=== PATIENT | female | born 1975 | race Caucasian/White ===

== ENCOUNTER 2021-03-06 08:59 | Emergency (ER) | payer OTHER ==
--- NOTE | 2021-03-06 09:02 | ED Physician Documentation ---
PD HPI URI - Stated complaint Stated Complaint: COUGHING/VOMITING - History obtained from History obtained from: Patient - History of Present Illness Timing - onset: How many weeks ago (3) Timing duration: Weeks (3) Timing details: Gradual onset, Still present Associated symptoms: Dry cough (initially with feeling of tightness. Tried OTC meds without improvment. Has had consistent worsening of cough and now for few days is having cough enough to point of gagging and has some clear sputum too. Had wisps of red with sputum couple times in last couple days. Unable to sleep due to cough now), Dyspnea. No: Fever, Chills, Chest pain, Bilateral edema Contributing factors: Other (had her COVID vaccine 3 weeks ago with 2nd dose couple days ago. Had already had some cough prior to then and worsening did not seem to correlate per se with the dosings.). No: Sick contact (other family members without illness and no noted exposure to COVID. Her 2 children have mild congestion the past day or two.), Travel, Immunocompromised Worsened by: Activity, Position (worse cough with lying at ngiht.) Similar symptoms before: Diagnosis (has some environmental allergies/asthma in the past. episodic bronchitis. No history of pneumonia.) Recently seen: Not recently seen Review of Systems Constitutional: reports: Myalgias. denies: Fever, Chills Nose: reports: Congestion, Sinus pressure / pain. denies: Rhinorrhea / runny nose Throat: denies: Sore throat Cardiac: denies: Chest pain / pressure, Palpitations Respiratory: reports: Dyspnea, Cough, Wheezing GI: reports: Nausea, Vomiting (with coughing hard.). 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: section, Tubal ligation, LEEP (Cervical surgery), Other - Present Medications Home Medications: Ambulatory Orders Medication Instructions Recorded Confirmed Albuterol Sulf [Ventolin Hfa 2 - 3 puffs INH QID 7 Days #1 03/06/21 Inhaler] inhaler Amoxicillin 500 mg PO TID #20 cap 03/06/21 Benzonatate [Tessalon] 100 mg PO TID PRN #20 cap 03/06/21 Citalopram Hydrobromide [Celexa] 40 mg PO DAILY 03/06/21 03/06/21 Lidocaine Viscous 2% [Xylocaine 5 ml PO Q4H PRN #100 ml 03/06/21 Viscous 2%] dexAMETHasone [Decadron] 4 mg PO DAILY #7 tablet 03/06/21 - Allergies Allergies/Adverse Reactions: Allergies Allergy/AdvReac Type Severity Reaction Status Date / Time No Known Drug Allergies Allergy Verified 03/06/21 09:06 - Social History Smoking Status: Former smoker PD ED PE NORMAL - Vitals Vital signs reviewed: Yes - General General: Alert and oriented X 3, No acute distress (repetitive cough with face turning red at times. No whooping sounds. Mild wheezing noted. ), Well developed/nourished - HEENT HEENT: Ears normal, Pharynx benign - Neck Neck: Supple, no meningeal sign, No adenopathy - Cardiac Cardiac: RRR, No murmur - Respiratory Respiratory: Clear bilaterally (minimal scattered wheezes. No prolonged expiratory phase. ) - Abdomen Abdomen: Soft, Non tender Results - Vitals Vitals: Vital Signs - 24 hr 03/06/21 03/06/21 03/06/21 09:06 09:46 10:50 Temperature 36.7 C 37.2 C Heart Rate 86 80 86 Respiratory 18 18 22 Rate Blood Pressure 119/76 110/78 O2 Saturation 100 98 Oxygen O2 Source Room air - Rads (name of study) chest xray Radiology: Prelim report reviewed (no infiltrates nor acute process.), See rad report PD MEDICAL DECISION MAKING - ED course Complexity details: reviewed results (chest xray okay), re-evaluated patient, considered differential (sounds likely environmental/allergies/asthma-yamilet but worse now with some sputum production. ), d/w patient Departure - Departure Disposition: 01 Home, Self Care Clinical Impression: Persistent cough for 3 weeks or longer Acute bronchitis Qualifiers: Bronchitis organism: unspecified organism Qualified Code(s): J20.9 - Acute bronchitis, unspecified Condition: Stable Record reviewed to determine appropriate education?: Yes Instructions: ED Bronchitis Asthmatic Follow-Up: [facility] Delacruz [Provider Group] Prescriptions: Amoxicillin 500 mg PO TID #20 cap dexAMETHasone [Decadron] 4 mg PO DAILY #7 tablet Benzonatate [Tessalon] 100 mg PO TID PRN #20 cap PRN Reason: Cough Albuterol Sulf [Ventolin Hfa Inhaler] 2 - 3 puffs INH QID 7 Days #1 inhaler Lidocaine Viscous 2% [Xylocaine Viscous 2%] 5 ml PO Q4H PRN #100 ml PRN Reason: Pain Comments: For the bronchial irritation, I would have you try the albuterol inhaler 2 to 3 puffs 4 times a day for the next week or so. Also Decadron steroid for inflammation of the airways and bronchials. This usually helps quite a bit and should start improving things later today into tomorrow. Tessalon as needed for cough suppression. For just throat irritation as well, you can use the lidocaine mixed with some liquid Benadryl and see if that helps as well. It is hard to tell if there may be some infectious component at this time so amoxicillin as directed for a week. Recheck if not improving well over the next couple of days and return if worsening. Discharge Date/Time: 03/06/21 10:50
[2021-03-06] MEDS ORDERED: ALBUTEROL 1 PUFF INH STA (09:25)
[2021-03-06] MEDS ORDERED: CETIRIZINE 10 MG TABLET PO STA (09:25)
[2021-03-06] MEDS ORDERED: DEXAMETHASONE 10 MG/ML VIAL PO STA (09:25)
[2021-03-06] MEDS ORDERED: CHERRY SYRUP 10 ML UDC PO ONE (09:25)
[2021-03-06] MEDS ORDERED: BENZONATATE 100 MG CAPSULE PO STA (09:25)
--- OUTSIDE RECORDS SUMMARY | 2021-03-06 09:31 | EXTERNAL MEDICAL SUMMARY RPT | Continuity of Care Document ---
:1975 Demographics Phone Unavailable Preferred Language Unknown Marital Status Unknown Holiness Affiliation Unknown Race Unknown Ethnic Group Unknown Author Organization [facility] Address [address] [place] [address] Phone Social History date description facility [phone]
--- NOTE | 2021-03-06 09:45 | XRAY Report ---
PROCEDURE: Chest 2 View X-Ray INDICATIONS: Dyspnea and cough for 4 weeks TECHNIQUE: 2 view(s) of the chest. COMPARISON: None. FINDINGS: Surgical changes and devices: None. Lungs and pleura: No pleural effusions or pneumothorax. Lungs are clear. Mediastinum: Mediastinal contours are normal. Heart size is normal. Bones and chest wall: No suspicious bony abnormalities. Soft tissues appear unremarkable. IMPRESSION: No acute cardiopulmonary process demonstrated radiographically. Reviewed by: Christopher Bowen MD on 03/06/2021 9:44 AM PDT Approved by: Christopher Bowen MD on 03/06/2021 9:44 AM PDT Station ID: [id number]
[2021-03-06] MEDS ORDERED: diphenhydrAMINE ELIXIR 25 MG/10 ML UDC PO STA (09:53)
[2021-03-06] MEDS ORDERED: LIDOCAINE VISCOUS 2% 15 ML UDC MM STA (09:53)
[2021-03-06 10:50] VITALS: BP 110/78
== END 2021-03-06 10:50 | disposition home or self-care (01) ==
LOC: ED 08:59
DX: J20.9 Acute bronchitis, unspecified (principal); J45.909 Unspecified asthma, uncomplicated; Z87.891 Personal history of nicotine dependence
CPT/HCPCS: 71046; 94640; 99284; A9270

== ENCOUNTER 2021-07-24 14:51 | Outpatient (CLI) | payer OTHER ==
--- NOTE | 2021-07-31 21:42 | SLEEP CARE CONSULTATION ---
Information from patient questionnaire entered by Edna Sellers. I have reviewed and concur with the information entered by Edna Sellers. This document represents the service I personally performed and the decisions made by me, Ale Dubose MD, [facility]. History of Present Illness Service Date and Time: 07/24/2021 1451 Reason for Visit: New patient Chief Complaint: reports: Unrefreshed sleep, Fatigue, Frequent awakenings at night Date of Onset: 11 years Usual bedtime: 9-10 PM Time it takes to fall asleep: 1-2 hours Snores at night: Yes Observed to quit breathing while asleep: No Sleeps alone due to snoring: No Number of times waking at night: 3-4 Reasons for waking at night: reports: Other (Unknown reason) Toss, Turn, or Twitch while sleeping: Yes Recalls having dreams: No Usually gets out of bed at: 4:30 AM Feels refreshed in the morning: No Morning headache: No Sleepy or fatigued during the day: Yes Ever fallen asleep while driving: No Takes day naps: No Dreams during day naps: Yes Prior sleep studies: No Additional HPI information: I have the pleasure of seeing Ms. Celis today regarding the possibility of her having a sleep disorder. As you know, she is a 45 year old lady who complains of insomnia for 11 years. She reports a personal trauma at the onset of her insomnia. She has been treated with Citalopram since. The patient tells me that she normally goes to bed around 9 - 10 pm, and it takes her approximately 1 2 hours to fall asleep. Presently, she is not taking any sleep aid. She has been told that she snores loudly and irregularly at night. She has never been observed to stop breathing in her sleep. Her sleeps in the same bed. He uses a CPAP. She can recall waking up on the average of 3 - 4 times during the night. Most of the time she wakes up because of unknown reason. She has never awakened because of her own snoring, choking, or having to gasp for air. There is a lot of tossing and turning in her sleep. She has somniloquy (sleep talking) but not somnambulism (sleep walking). Generally there is no recollection of dreams. In the morning she usually gets up out of the bed around 4:30 a.m. to commute to work in [employer]. She does not feeling refreshed or rested. On weekends, she wakes up at 7 a.m. She occasional has a morning headache. During the day she complains of feeling sleepy and fatigued. Her score on [place] Sleepiness Scale is 10 out of 24. She never has fallen asleep while driving nor has had any accident due to sleepiness. She usually does not take naps during the day. She reports having impaired concentration during the day. 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 Patient is and lives in [place]. Family History Family history of sleep disordered breathing: Yes Family Hx Sleep Apnea: Mother: Sleep apnea - Treated Allergies and Home Medications Drug allergies reviewed: Yes Home medication list reviewed: Yes Review of Systems Cardiovascular: denies: high blood pressure, palpitations, chest pain, irregular heart rate or pulse, leg or foot swelling, have to sleep sitting up, other Respiratory: denies: shortness of breath, wheeze, sputum production, chronic cough, other Gastrointestinal: denies: heartburn, difficulty swallowing, nausea, vomitting, diarrhea, abdominal pain, other Urinary: denies: incontinence, frequency, urgency, impotence, other Neurological: reports: headaches, other (pain) Psychiatric: reports: anxiety, depression Ear/Nose/Throat: reports: other (polyps) Musculoskeletal: reports: joint pain (stiffness), neck pain, back pain, joint swelling Immunologic: denies: sneezing, rash, itching, allergies to food or environment, other Physical Exam Vital signs obtained and entered by: To minimize the risk of COVID-19 exposure, detailed exam was not performed. Height: 5 ft 5 in Weight: 200 lb Body Mass Index: 33.3 BMI Classification: Obese Impression and Plan IMPRESSION: 1. Obstructive Sleep Apnea-Hypopnea Syndrome, as evident by history of loud and irregular snoring, frequent awakenings during the night, unrefreshed sleep, cognitive impairment, and daytime hypersomnolence. Narrow oropharynx and obesity are common predisposing factors for obstructive sleep apnea-hypopnea syndrome. I recommend proceeding to polysomnography to confirm the diagnosis and to assess severity. If she has significant sleep disordered breathing, a manual CPAP titration study will also be performed to find the optimal treatment pressure. I informed the patient of what the sleep studies involve and after some discussion, she would like to have a home sleep apnea test (HSAT). 2. Insomnia, due to have two different sleep-wake schedulesweek and weekends. The solution is to keep only one schedule. This means she has to wake up at 4:30 am every day, including on weekends. However, because she is leaving her job in just 3 months, I do not see a real need to correct the problem at this time. Plan: 1. Schedule a home sleep apnea test (HSAT). 2. Avoid long distance driving or when feeling sleepy. 3. Avoid alcohol, sedative and muscle relaxant around bedtime. 4. Attempt to lose weight. 5. Return for follow up after the test. Follow up with Sleep Care in: 1-2 months Visit Type: In Office Time Spent with Patient (minutes): 15 Provider Statement: I spent 100% of the Face to Face Visit with the patient with greater than 50% spent counseling the patient and coordination of care.
== END 2021-07-24 14:52 | disposition home or self-care (01) ==
LOC: SC 14:51
PROVIDERS: ATTEND Internal Medicine Pulmonary Disease
DX: R06.83 Snoring (principal); G47.33 Obstructive sleep apnea (adult) (pediatric); G47.8 Other sleep disorders; R41.89 Other symptoms and signs involving cognitive functions and awareness; R06.81 Apnea, not elsewhere classified; E66.9 Obesity, unspecified; Z68.33 Body mass index [BMI] 33.0-33.9, adult
CPT/HCPCS: 99202; 99212

== ENCOUNTER 2021-08-01 14:59 | Outpatient (CLI) | payer OTHER | END 2021-08-01 15:00 | disposition home or self-care (01) | LOC: SC 14:59 | PROVIDERS: ATTEND Nurse Practitioner Family | DX: R06.83 Snoring (principal); G47.00 Insomnia, unspecified; G47.10 Hypersomnia, unspecified; G47.8 Other sleep disorders; R41.89 Other symptoms and signs involving cognitive functions and awareness | CPT/HCPCS: 95806 ==

== ENCOUNTER 2021-08-08 09:02 | Outpatient (CLI) | payer OTHER ==
--- NOTE | 2021-08-21 10:37 | Mammography Report ---
BILATERAL DIGITAL SCREENING MAMMOGRAM 3D/2D: 08/08/2021 CLINICAL: Routine screening. Comparison is made to exam dated: 11/20/2017 mammogram - [facility]. The tissue of both aldair asts is heterogeneously dense. This may lower the sensitivity of mammography. There are biopsy clips in the right breast. No significant masses, calcifications, or other findings are seen in either breast. There has been no significant interval change. IMPRESSION: NEGATIVE There is no mammographic evidence of malignancy. A 1 year screening mammogram is recommended. This exam was interpreted at Station ID: [id number]. NOTE: For mammograms, a report in lay terms will be sent to the patient. Approximately 15% of breast malignancies will not be visualized mammographically. In the management of a palpable breast mass, a negative mammogram must not discourage biopsy of a clinically suspicious lesion. Electronically Signed By: Ricky Simpson M.D. ar/[email or web address]:08/18/2021 16:25:06 ACR BI-RADS Category 1: Negative 3341F PARENCHYMAL PATTERN: (D) - The breast(s) demonstrate(s) heterogeneously dense fibroglandular patricia chapman. BI-RADS CATEGORY: (1) - 1 RECOMMENDATION: (ANNUAL) - Recommend routine annual screening mammography. [id number] 1 year screening LATERALITY: (B)
== END 2021-08-08 09:03 | disposition home or self-care (01) ==
LOC: DI.N 09:02
PROVIDERS: ATTEND Family Medicine
DX: Z76.89 Persons encountering health services in other specified circumstances (principal); Z12.31 Encounter for screening mammogram for malignant neoplasm of breast

== ENCOUNTER 2021-08-21 14:22 | Outpatient (CLI) | payer OTHER ==
[2021-08-22 08:32] VITALS: BP 112/62
--- NOTE | 2021-08-22 08:32 | SLEEP CARE CONSULTATION ---
Information from patient questionnaire entered by Roxana Martines. I have reviewed and concur with the information entered by Roxana Martines. This document represents the service I personally performed and the decisions made by me, Ale Dubose MD, [facility]. History of Present Illness Service Date and Time: 08/21/2021 1422 Initial [place] Sleepiness Scale score: 10 (in 2020) Current [place] Sleepiness Scale score: 16 Additional HPI information: Ms. Celis returned for follow up of the home sleep apnea test (HSAT) she had on 08/01/2021. The test showed no significant sleep disordered breathing. The AHI was 1.8 and asad oxygen saturation of 89%. The test was of good quality and lasted 7 hours. The patient said she slept most of the time that night. The patient was informed of these findings. I explained to her that the test w as normal. Sleep Study - Results Type of Sleep Study: Home sleep study Prior sleep studies: Yes Year and Where: 07/2021 [facility] Allergies and Home Medications Drug allergies reviewed: Yes Home medication list reviewed: Yes Review of Systems Review of systems same as previous: Yes Physical Exam Blood Pressure: 112/62 Heart Rate: 98 O2 Saturation: 98 Height: 5 ft 5 in Weight: 214 lb Body Mass Index: 35.6 BMI Classification: Obese Impression and Plan IMPRESSION: 1. Insomnia, due to circadian rhythm disordershe had to wake up very early on certain days of the week. The patient has since quit the job and her insomnia resolved. 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 PLAN: 1. Return for a follow up on as needed basis. Follow up with Sleep Care in: as needed Visit Type: In Office Time Spent with Patient (minutes): 15 Provider Statement: I spent 100% of the Face to Face Visit with the patient with greater than 50% spent counseling the patient and coordination of care.
== END 2021-08-21 14:23 | disposition home or self-care (01) ==
LOC: SC 14:22
PROVIDERS: ATTEND Internal Medicine Pulmonary Disease
DX: G47.00 Insomnia, unspecified (principal)
CPT/HCPCS: 99212

== ENCOUNTER 2021-11-03 10:42 | Emergency (ER) | payer OTHER ==
[2021-11-03 11:39] VITALS: BP 121/78
[2021-11-03] MEDS ORDERED: guaiFENesin 600 MG TABLET PO STA (12:28)
[2021-11-03] MEDS ORDERED: PSEUDOEPHEDRINE 30 MG TABLET PO STA (12:28)
[2021-11-03] MEDS ORDERED: IBUPROFEN 800 MG TABLET PO STA (12:28)
--- NOTE | 2021-11-03 12:31 | ED Physician Documentation ---
PD HPI DYSPNEA - Stated complaint Stated Complaint: C+, HEADACHES, COUGH - Chief complaint Chief Complaint: Resp - History obtained from History obtained from: Patient - Additional information Additional information: 45-year-old woman who has been immunized Covid with moderna vaccine, no booster. She became sick yesterday with cough, runny nose, sinus pressure, sore throat. No shortness of breath. She does have joint aches. She tested positive with a home test for Covid. Review of Systems Constitutional: reports: Chills, Myalgias, Fatigue. denies: Fever Nose: reports: Rhinorrhea / runny nose Throat: reports: Sore throat Respiratory: reports: Cough. 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, Tubal ligation, LEEP (Cervical surgery), Other - Present Medications Home Medications: Ambulatory Orders Medication Instructions Recorded Confirmed Citalopram Hydrobromide 40 mg PO DAILY 11/03/21 11/03/21 [Citalopram HBr] Guaifenesin/Pseudoephedrne HCl 1 each PO BID PRN #20 ea 11/03/21 [Mucinex D ER 600-60 mg Tablet] Ibuprofen [Motrin] 800 mg PO Q8H PRN #30 tablet 11/03/21 - Allergies Allergies/Adverse Reactions: Allergies Allergy/AdvReac Type Severity Reaction Status Date / Time No Known Drug Allergies Allergy Verified 11/03/21 11:02 - Social History Does the pt smoke?: No Smoking Status: Never smoker PD ED PE NORMAL - Vitals Vital signs reviewed: Yes - General General: Alert and oriented X 3, No acute distress - HEENT HEENT: Ears normal, Pharynx benign - Neck Neck: Supple, no meningeal sign, No bony TTP - Cardiac Cardiac: RRR, No murmur - Respiratory Respiratory: No respiratory distress, Clear bilaterally - Derm Derm: No rash - Neuro Neuro: Alert and oriented X 3, Normal speech Results - Vitals Vitals: Vital Signs - 24 hr 11/03/21 11/03/21 11:03 11:38 Temperature 36.6 C Heart Rate 81 82 Respiratory 19 16 Rate Blood Pressure 126/84 H 121/78 O2 Saturation 99 100 Oxygen O2 Source Room air PD MEDICAL DECISION MAKING - ED course ED course: 45-year-old woman with Covid in typical symptoms of a days duration. We discussed Mab therapy but its questionable limitations in the setting of omicron since we don't have one now that is effective against omicron yet. Discussed that we have no way of identifying which variant she has at this point but Mab was still offered and she declined. Departure - Departure Disposition: 01 Home, Self Care Clinical Impression: COVID-19 Condition: Good Record reviewed to determine appropriate education?: Yes Instructions: ED Viral Syndrome Prescriptions: Ibuprofen [Motrin] 800 mg PO Q8H PRN #30 tablet PRN Reason: PAIN &/OR FEVER Guaifenesin/Pseudoephedrne HCl [Mucinex D ER 600-60 mg Tablet] 1 each PO BID PRN #20 ea PRN Reason: congestion Comments: Prescriptions sent electronically to [facility] in [place]. You do need to strictly quarantine for the next 13 days. Return for new or worsening symptoms or if you change your mind about antibody therapy. Discharge Date/Time: 11/03/21 13:16
== END 2021-11-03 13:16 | disposition home or self-care (01) ==
LOC: ED 10:42
DX: U07.1 COVID-19 (principal)
CPT/HCPCS: 87635; 99282; 99283; A9270

== ENCOUNTER 2022-08-29 09:05 | Outpatient (CLI) | payer OTHER ==
--- NOTE | 2022-08-30 10:37 | Mammography Report ---
BILATERAL DIGITAL SCREENING MAMMOGRAM 3D/2D: 08/29/2022 CLINICAL: Routine screening. Comparison is made to exams dated: 08/08/2021 mammogram - [facility] and 11/20/2017 mammogram - [facility]. Both breasts are heterogeneously dense, which may obscure small masses (category c / 51-75% glandular tissue). There are biopsy clips in the right breast. No significant masses, calcifications, or other findings are seen in either breast. There has been no significant interval change. IMPRESSION: NEGATIVE There is no mammographic evidence of malignancy. A 1 year screening mammogram is recommended. Based on the Tyrer Cuzick model (a risk assessment model) the patients lifetime risk is 13.3% and he r 10 year risk is 2.4%. According to the ACR, ACS, and NCCN guidelines, an annual breast MRI exam milla ng with mammogram is recommended if the patients lifetime risk is 20% or greater. This exam was interpreted at Station ID: [id number]. NOTE: For mammograms, a report in lay terms will be sent to the patient. Approximately 15% of breast malignancies will not be visualized mammographically. In the management of a palpable breast mass, a negative mammogram must not discourage biopsy of a clinically suspicious lesion. Electronically Signed By: Vladimir gann/[email or web address]:08/29/2022 10:40:16 ACR BI-RADS Category 1: Negative 3341F PARENCHYMAL PATTERN: (D) - The breast(s) demonstrate(s) heterogeneously dense fibroglandular parcinthiay ma. BI-RADS CATEGORY: (1) - 1 RECOMMENDATION: (ANNUAL) - Recommend routine annual screening mammography. [id number] 1 year screening LATERALITY: (B)
== END 2022-08-29 09:06 | disposition home or self-care (01) ==
LOC: DI.N 09:05
PROVIDERS: ATTEND Physician Assistant
DX: Z12.31 Encounter for screening mammogram for malignant neoplasm of breast (principal)

== ENCOUNTER 2022-09-11 08:00 | Outpatient (CLI) | payer OTHER ==
--- NOTE | 2022-09-11 16:40 | XRAY Report ---
PROCEDURE: Knee 4 View RT INDICATIONS: RIGHT KNEE PAIN TECHNIQUE: 4 views of the right knee(s) were acquired. COMPARISON: 05/30/2016 and 02/09/2016 FINDINGS: Bones: No fractures or dislocations. Mild to moderate tricompartmental osteoarthritis is seen most notably in medial femoral tibial compartment with joint space narrowing, subchondral sclerosis and sm all marginal osteophyte formations. No suspicious bony lesions. Soft tissues: No joint effusion. No suspicious soft tissue calcifications. IMPRESSION: Mild to moderate tricompartmental osteoarthritis in right knee most notably in medial fe moral tibial compartment. No fracture or dislocation. No significant joint effusion. Reviewed by: Wilian Rosales MD on 09/11/2022 4:39 PM PDT Approved by: Wilian Rosales MD on 09/11/2022 4:39 PM PDT Station ID: [id number]
== END 2022-09-11 23:59 | disposition home or self-care (01) ==
LOC: DI.WOS 08:00
PROVIDERS: ATTEND Physician Assistant Surgical
DX: M17.11 Unilateral primary osteoarthritis, right knee (principal)

== ENCOUNTER 2022-09-18 08:00 | Outpatient (CLI) | payer OTHER ==
--- NOTE | 2022-09-18 13:38 | XRAY Report ---
PROCEDURE: Ankle 3 View BILAT INDICATIONS: BILAT ANKLE PAIN TECHNIQUE: 3 views of the both ankles were acquired. COMPARISON: None FINDINGS: Bones: No fractures or dislocations. Ankle mortise is normally aligned. No suspicious bony lesions . Soft tissues: No tibiotalar joint effusion. Achilles tendon appears normal. IMPRESSION: Normal bilateral ankles Reviewed by: Cosme Cordova on 09/18/2022 1:37 PM [facility] Approved by: Cosme Cordova on 09/18/2022 1:37 PM [facility] Station ID: [id number]
== END 2022-09-18 08:01 | disposition home or self-care (01) ==
LOC: DI.WOS 08:00
PROVIDERS: ATTEND Physician Assistant Surgical
DX: M25.671 Stiffness of right ankle, not elsewhere classified (principal); M25.672 Stiffness of left ankle, not elsewhere classified

== ENCOUNTER 2022-09-22 08:20 | Outpatient (CLI) | payer OTHER ==
--- NOTE | 2022-09-24 10:52 | MRI Report ---
PROCEDURE: KNEE WO - RT INDICATIONS: RIGHT KNEE PAIN TECHNIQUE: Noncontrast sagittal PD fast spin echo and T2 fast spin echo with fat saturation, sagittal 3-D gradie nt sequence with fat saturation; coronal T1 spin echo and PD fast spin echo with fat saturation, and axial PD fast spin echo with fat saturation through the knee. COMPARISON: Knee radiograph dated 09/11/2022 FINDINGS: Image quality: Excellent. Menisci: The medial and lateral menisci demonstrate normal morphology and internal signal. The meni scal root ligaments appear intact. Cruciate ligaments: The anterior cruciate ligament is mildly thickened with subtle intrasubstance T2 hyperintense signal. PCL is intact. Medial structures: There is low-grade proximal MCL sprain at its femoral insertion.. The posterior o blique ligament, semimembranosus tendon insertions, and oblique popliteal ligament, and meniscocapsul ar junction appear intact. Visualized portions of the pes anserinus tendons appear normal. No abnor mal bursal fluid. Lateral structures: The lateral collateral ligament, long and short heads of the biceps femoris tend on appear intact. The popliteus tendon appears normal; the popliteofibular ligament appears intact. otibial band appears normal. Anterior structures: The quadriceps and patellar tendons appear intact. Patellar alignment is salvador l. No femoral trochlear dysplasia or ventral trochlear prominence. No edema in the infrapatellar fa t pad. Bones and cartilage: No bone marrow contusions or fractures. Low-grade chondromalacia in medial and lateral femorotibial compartments are seen. Moderate grade chondromalacia involving medial facet of p atella cartilage near apex with underlying small subcortical cystic area and mild edema suggestive of small osteochondral injury. Joint space: There is mild to moderate amount of joint effusion, no gross loose bodies. No Barrett's c yst. Normal appearing synovial plicae are incidentally noted. IMPRESSION: 1. 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 Low-grade chondromalacia also seen in medial and lateral femora l tibial compartments. No fracture or dislocation. Small to moderate amount of joint effusion, no ari ss loose bodies. 2. Low-grade proximal MCL sprain. Low-grade sprain/intrasubstance partial thickness tear involving an terior cruciate ligament. No ACL rupture. PCL is intact. 3. No evidence of focal meniscal tear. Reviewed by: Wilian Rosales MD on 09/24/2022 10:51 AM PST Approved by: Wilian Rosales MD on 09/24/2022 10:51 AM PST Station ID: [id number]
== END 2022-09-22 08:21 | disposition home or self-care (01) ==
LOC: DI 08:20
PROVIDERS: ATTEND Physician Assistant Surgical
DX: M22.41 Chondromalacia patellae, right knee (principal); M25.461 Effusion, right knee; S83.411A Sprain of medial collateral ligament of right knee, initial encounter; S83.511A Sprain of anterior cruciate ligament of right knee, initial encounter